=== PATIENT | female | born 1990 | race Caucasian/White ===

== ENCOUNTER 2017-10-02 01:20 | Inpatient (IN) | payer OTHER ==
[~2017-10-02] VITALS: Ht 162.6 cm; Wt 80.0 kg
[2017-10-02] MEDS ORDERED: OXYTOCIN 30U/ 0.9% NaCL 500ML 500 ML ONE (01:32)
[2017-10-02] MEDS ORDERED: NEWBORN KIT ONE (01:32)
[2017-10-02] MEDS: D5%-LACTATED RINGERS 1,000 ML IV SCH ×2 (01:57→09:57)
[2017-10-02] MEDS ORDERED: OXYTOCIN 30U/ 0.9% NaCL 500ML 500 ML IV ONE (01:57)
[2017-10-02] MEDS ORDERED: SODIUM CITRATE/CITRIC ACID 30 ML UDC PO PRN (02:00)
[2017-10-02] MEDS ORDERED: CALCIUM CARBONATE 500 MG TAB.CHEW PO PRN ×2 (02:00→08:30)
[2017-10-02] MEDS ORDERED: METOCLOPRAMIDE 5 MG/ML, 2ML IVPush PRN (02:00)
[2017-10-02] MEDS ORDERED: ONDANSETRON 2MG/ML, 2ML IVPush PRN (02:00)
[2017-10-02] MEDS ORDERED: ALUMINUM/MAG/SIMETHICONE 30 ML UDC PO PRN (02:00)
[2017-10-02] MEDS ORDERED: TERBUTALINE 1 MG/ML, 1ML IVPush PRN ×2 (02:00)
[2017-10-02] MEDS ORDERED: FENTANYL PF 100 MCG/2ML IVPush PRN (02:00)
[2017-10-02] MEDS ORDERED: FENTANYL PF 100 MCG/2ML IV PRN (02:00)
[2017-10-02] MEDS: PLEASE ENTER ALLERGIES MC SCH ×4 (02:30→10:30)
[2017-10-02 02:33] LABS: HEMATOCRIT 35.3 % (34.6-47.8); HEMOGLOBIN 11.5 g/dL (11.7-16.4); WHITE BLOOD COUNT 9.2 x10^3/uL (3.4-10)
[2017-10-02] MEDS ORDERED: FENTANYL PF 100 MCG/2ML ONE (02:41)
[2017-10-02] MEDS ORDERED: FENTANYL/BUPIV./NS/PF 250 ML EPIDCONT SCH (02:59)
[2017-10-02] MEDS ORDERED: EPHEDRINE 50 MG/ML, 1ML IVPush PRN (03:00)
[2017-10-02] MEDS ORDERED: LACTATED RINGERS 1,000 ML IVBOLUS PRN (03:00)
[2017-10-02] MEDS ORDERED: NALOXONE 0.4 MG/ML, 1ML IVPush PRN (03:00)
[2017-10-02] MEDS ORDERED: FENTANYL/BUPIV./NS/PF 250 ML EPIDCONT ONE (03:01)
[2017-10-02] MEDS ORDERED: BUPIVACAINE/PF 0.25% ONE ×2 (03:01→03:02)
[2017-10-02] MEDS ORDERED: CALCIUM CARBONATE 500 MG TAB.CHEW ONE (05:56)
[2017-10-02] MEDS: LACTATED RINGERS 1,000 ML IV SCH ×4 (05:59→10:59)
[2017-10-02] MEDS ORDERED: LIDOCAINE 1%, 20ML ONE (07:08)
[2017-10-02] MEDS ORDERED: MISOPROSTOL 200 MCG TABLET ONE (07:09)
[2017-10-02] MEDS: OXYTOCIN 30U/ 0.9% NaCL 500ML 500 ML IV SCH ×2 (08:20→18:20)
[2017-10-02] MEDS ORDERED: GLYCERIN ADULT SUPP PR PRN (08:30)
[2017-10-02] MEDS ORDERED: MAGNESIUM HYDROXIDE 8%, 30ML UDC PO PRN (08:30)
[2017-10-02] MEDS ORDERED: DOCUSATE 100 MG CAPSULE PO PRN (08:30)
[2017-10-02] MEDS ORDERED: MISOPROSTOL 200 MCG TABLET PR PRN (08:30)
[2017-10-02] MEDS ORDERED: ACETAMINOPHEN 325 MG TABLET PO PRN ×2 (08:30)
[2017-10-02] MEDS ORDERED: CARBOPROST TROMETHAMINE 250 MCG/ML, 1ML IM PRN (08:30)
[2017-10-02] MEDS ORDERED: BISACODYL 10 MG SUPP PR PRN (08:30)
[2017-10-02] MEDS ORDERED: METHYLERGONOVINE 0.2 MG/ML IM PRN (08:30)
[2017-10-02] MEDS ORDERED: OXYcodone/APAP 5/325MG TABLET PO PRN (08:30)
[2017-10-02] MEDS ORDERED: IBUPROFEN 600 MG TABLET ONE (08:33)
[2017-10-02] MEDS: IBUPROFEN 600 MG TABLET PO PRN ×3 (08:35→21:42)
[2017-10-02] MEDS: PRENATAL VIT/IRON/FA 1 EACH TABLET PO SCH (09:00)
[2017-10-02 10:45] VITALS: BP 119/72
[2017-10-02] MEDS: OXYcodone/APAP 5/325MG TABLET PO PRN ×2 (12:59→18:17)
[2017-10-02 15:30] VITALS: BP 129/75
[2017-10-02 16:17] LABS: HEMATOCRIT 33.4 % (34.6-47.8); HEMOGLOBIN 10.9 g/dL (11.7-16.4); WHITE BLOOD COUNT 10.9 x10^3/uL (3.4-10)
[2017-10-02 20:10] VITALS: BP 108/70
[2017-10-03] VITALS: BP 97/58
[2017-10-03 03:40] VITALS: BP 104/67
[2017-10-03] MEDS: OXYcodone/APAP 5/325MG TABLET PO PRN ×2 (03:46→08:20)
[2017-10-03] MEDS: IBUPROFEN 600 MG TABLET PO PRN ×2 (03:46→11:27)
[2017-10-03] MEDS: PRENATAL VIT/IRON/FA 1 EACH TABLET PO SCH (08:10)
[2017-10-03 08:30] VITALS: BP 116/71
[2017-10-03] MEDS ORDERED: IBUP-1222 PO (11:37)
[2017-10-03] MEDS ORDERED: OXYC-302 PO (11:37)
== END 2017-10-03 14:00 | disposition home or self-care (01) | DRG 775 ==
LOC: LDOP 01:20 → LDIP 01:57 → 2NW 10:22
PROVIDERS: ADMIT Obstetrics & Gynecology; ATTEND Obstetrics & Gynecology
PROC: 0KQM0ZZ Repair Perineum Muscle, Open Approach (ICD-10-PCS; principal; 2017-10-02)
PROC: 10E0XZZ Delivery of Products of Conception, External Approach (ICD-10-PCS; 2017-10-02)
PROC: 3E0R3BZ Introduction of Anesthetic Agent into Spinal Canal, Percutaneous Approach (ICD-10-PCS; 2017-10-02)
PROC: 00HU33Z Insertion of Infusion Device into Spinal Canal, Percutaneous Approach (ICD-10-PCS; 2017-10-02)
DX: O70.1 Second degree perineal laceration during delivery (principal); Z37.0 Single live birth; Z3A.38 38 weeks gestation of pregnancy
CPT/HCPCS: 36415; 85025; 86850; 86900; J3010; J3490; J7120